=== PATIENT | female | born 1945 | race Caucasian/White ===

== ENCOUNTER 2023-09-13 15:50 | Inpatient (IN) | payer MEDICARE, OTHER, SELFPAY ==
[2023-09-13] VITALS (15 sets, daily range): BP systolic 73–129; BP diastolic 44–60; PULSE 75–97; RESP 16–20; TEMP 37.1–39.1; O2SAT 95–98; BMI 26.1
--- NOTE | ~2023-09-13 | CT_ITS ---
EXAMINATION: CT ABDOMEN AND PELVIS WITH CONTRAST CLINICAL INFORMATION: Pancytopenia. Hypotension. Fever. COMPARISON: None available. TECHNIQUE: Multidetector volumetric images were obtained from the superior aspect of the liver through the pubic symphysis following administration 85 mL of Omnipaque 350 intravenous contrast. Sagittal and coronal reformatted images were obtained on the technologist's workstation. Oral contrast: No This CT examination was performed using dose optimization techniques as appropriate, variously including the following: *Automated exposure control *Adjustment of mA and/or kV according to patient size (this includes techniques or standardized protocols for targeted exams where dose is matched to indication/reason for exam; i.e. extremities or head) *Use of iterative reconstruction technique DLP: 496 mGy-cm FINDINGS: LUNG BASES: The visualized lung bases are unremarkable. LIVER, GALLBLADDER, AND BILIARY TREE: The liver is normal in size, shape, and attenuation. No focal hepatic lesion or biliary ductal dilatation is present. 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 SPLEEN: Unremarkable. ADRENAL GLANDS: Unremarkable. KIDNEYS AND URETERS: The kidneys are normal in size, shape, and attenuation. No hydronephrosis, hydroureter, or calculi seen. No perinephric stranding. BLADDER: Unremarkable. GASTROINTESTINAL TRACT: The small and large bowel are unremarkable. The appendix is unremarkable. ABDOMINAL WALL: No significant hernia is appreciated. LYMPH NODES: Normal. VASCULAR: Unremarkable. PELVIC VISCERA: Unremarkable. OSSEOUS STRUCTURES: There is diffuse thoracolumbar disc degenerative change with curvature of the lumbar spine convex to the right. CT/CT abdomen pelvis w IV con IMPRESSION: No acute intra-abdominal process. Fleischner guidelines were followed.
--- NOTE | ~2023-09-13 | XR_ITS ---
EXAMINATION: XR CHEST CLINICAL INFORMATION: Fever. COMPARISON: None available. TECHNIQUE: Frontal view of the chest was obtained. FINDINGS: No significant abnormality is noted involving the heart, lungs, mediastinum, bony thorax or soft tissues. XR/XR chest 1V IMPRESSION: No radiographic evidence of pneumonia.
--- NOTE | 2023-09-13 17:30 | ED.FALL ---
HPI - Fall General Chief Complaint: Fall Stated Complaint: MECHANICAL FALL,WEAKNESS, FEVERISH SINCE TUESDAY Time Seen by Provider: 09/13/23 17:30 Source: patient Mode of arrival: EMS Limitations: no limitations History of Present Illness HPI Narrative: Patient been having fever with chills for last 5 days ranging to 103-104 had COVID flu test done yesterday which was negative no upper respiratory symptoms no urinary symptoms no cough prior to arrival patient was taking shower felt lightheaded shower curtain came on along with the patient landed on buttocks no significant injury no loss of consciousness no head injury no neck pain for last 4- 5 days patient not been eating well. No nausea no vomiting no diarrhea no abdominal pain or chest pain no palpitation patient had tick bite on the right chest a week ago the moment patient had tick bite she removed tick within few minutes which was not engorged had local erythema at the site of the bite Related Data Allergies Allergy/AdvReac Type Severity Reaction Status Date / Time Sulfa (Sulfonamide Allergy hives and Verified 09/13/23 16:23 Antibiotics) rash Review of Systems Review of Systems: Yes all other systems are reviewed and are negative [facility] Social History Social History Smoked in Last 30 Days: No Use of substances other than those prescribed or required for medical reasons: No Advance Directives: No Advance Directives Information Provided: No Physical Exam Vital Signs: Vital Signs: Last Vital Signs Temp 99.1 F 09/14/23 00:11 Pulse 90 09/14/23 00:38 Resp 18 09/14/23 00:38 BP 114/62 09/14/23 00:38 Pulse Ox 97 09/14/23 00:11 O2 Del Method Room Air 09/14/23 00:38 BMI result Body Mass Index 26.1 Appearance: Alert. Oriented X3. No acute distress. Eyes: PERRLA, No Nystagmus ENT: Pharynx normal. Oral Mucosa dry Neck: Normal inspection. Neck supple. CVS: Normal heart rate and rhythm. Pulses normal. Respiratory: No respiratory distress. Equal air entry bilateral, no wheezing/rales/rhonchi Abdomen: Soft and nontender. Bowel sounds are present, no mass palpable, no CVA tenderness Skin: Skin warm and dry. Normal skin color. Normal skin turgor. Extremities: No lower extremity edema. No calf tenderness Neuro: Oriented X 3. No motor deficit. No sensory deficit.No cerebellar signs , cranial nerves II-XII intact Medications Administered Generic Name Dose Route Start Last Admin Trade Name Ella PRN Reason Stop Dose Admin Lactated Ringer's 1,000 mls @ 250 mls/hr 09/13/23 21:13 09/13/23 21:57 Lr IVCONT 09/14/23 01:12 250 mls/hr .Q4H ONE Administration Discontinued Medications Generic Name Dose Route Start Last Admin Trade Name Ella PRN Reason Stop Dose Admin Acetaminophen 650 mg 09/13/23 17:32 09/13/23 18:06 Acetaminophen 325 Mg Tablet PO 09/13/23 17:33 650 mg ONCE ONE Administration Sodium Chloride 1,000 mls @ 999 mls/hr 09/13/23 17:31 09/13/23 19:03 Ns IV 09/13/23 18:31 Infused .Q1H1M ONE Infusion Sodium Chloride 1,000 mls @ 999 mls/hr 09/13/23 19:29 09/13/23 21:06 Ns IV 09/13/23 20:29 Infused .Q1H1M ONE Infusion Cefepime HCl 1 gm/ Sodium 50 mls @ 100 mls/hr 09/13/23 19:35 09/13/23 20:17 Chloride IV 09/13/23 20:04 Infused ONCE ONE Infusion Doxycycline Hyclate 100 mg/ 250 mls @ 166.67 mls/hr 09/13/23 19:37 09/13/23 22:20 Sodium Chloride IV 09/13/23 21:06 Infused ONCE ONE Infusion Iohexol 85 ml 09/13/23 23:52 09/13/23 23:52 Iohexol 350 Mg/Ml 100 Ml Infus..Btl IV 09/13/23 23:53 85 ml ONCE ONE Administration Midodrine 10 mg 09/13/23 21:12 09/13/23 21:57 Midodrine Hcl 10 Mg Tablet PO 09/13/23 21:13 10 mg ONCE ONE Administration Medical Decision Making Medical Decision Making [facility] Narrative: Patient with fever pancytopenia source of infection is not clear likely tick-borne diseases/atypical viral conditions//anasplmosis/ ehrlichiosis Patient received IV fluid more than 30 cc/kg of broad-spectrum antibiotics were given including doxycycline to cover atypical infections blood pressure improved to 114/62 with pulse rate of 90 patient looks much better taking p.o. fluids will admit to medical floor case discussed with interface control officer and hospitalist aware of the situation Differential Diagnosis Differential Diagnoses: The differential diagnosis associated with the presentation includes UTI/bacteremia /viral infection/ehrlichiosis/septicemia/ Admission/Observation Consideration of admission/observation: Escalation of care including admission/observation considered Consult Healthcare Provider Management of the patient was discussed with: Hospitalist Lab Data [facility] Lab Attestation statement: I reviewed the patient's lab results. 09/13/23 18:02 09/13/23 18:02 Labs: Lab Results 09/13/23 09/13/23 09/13/23 Range/Units 18:02 19:07 20:52 WBC 1.4 L (4.8-10.8) X10*3/uL RBC 3.72 L (4.20-5.50) X10*6/uL Hgb 9.9 L (12.0-16.0) g/dl Hct 29.4 L (37.0-47.0) % MCV 79.0 L (80.0-98.0) fL MCH 26.6 L (27.0-33.0) pg MCHC 33.7 (31.0-35.0) g/dl RDW 13.0 (11.0-16.0) % Plt Count 29 L (160-400) X10*3/uL MPV Not Reportable Immature Gran % (Auto) 0.0 (0.0-0.4) % Neut % (Auto) 81.7 H (45-73) % Lymph % (Auto) 11.3 L (20-40) % [place] % (Auto) 7.0 (2-11) % Eos % (Auto) 0.0 (0-4) % Baso % (Auto) 0.0 (0-2) % Lymph # (Auto) 0.2 L (1.2-4.9) X10*3/uL [place] # (Auto) 0.1 (0.1-1.2) X10*3/uL Eos # (Auto) 0.0 (0.0-0.4) X10*3/uL Baso # (Auto) 0.0 (0.0-0.2) X10*3/uL Abs Immat Gran (auto) 0.00 (0.00-0.03) X10*3/uL Absolute Neuts (auto) 1.2 L (2.0-8.3) x10*3/uL Absolute Nucleated RBC 0.000 (0.0-0.012) X10*3/uL Nucleated RBC % (auto) 0.0 (0.0-0.2) /100WBC Smear Tech's Comments VERIFIED Sodium 131 L (135-145) mmol/L Potassium 3.5 (3.3-5.1) mmol/L Chloride 97 (96-108) mmol/L Carbon Dioxide 24 (22-29) mmol/L Anion Gap 14 (12-20) BUN 21 H (9-16) mg/dL Creatinine 0.83 (0.5-1.4) mg/dL Estim Creat Clear Calc 55.8 Estimated GFR > 60 Random Glucose 114 (60-115) mg/dL Lactic Acid 1.1 (0.5-2.0) mmol/L Calcium 8.5 (8.4-10.2) mg/dL Magnesium 2.0 (1.6-2.6) mg/dL Total Bilirubin 0.4 (0.0-1.0) mg/dL AST 98 H (5-31) U/L ALT 68 H (0-31) U/L Alkaline Phosphatase 178 H (39-117) U/L C-Reactive Protein 25.74 H (< or = 0.50) mg/dL Total Protein 5.9 L (6.5-8.0) g/dL Albumin 3.3 L (3.5-5.0) g/dL Urine Color Yellow Urine Appearance Cloudy Urine pH 6.0 (5.0-9.0) Ur Specific [place] 1.015 (1.005-1.025) Urine Protein 100 (2+) H (Neg-Trace) mg/dL Urine Glucose (UA) Negative (Negative) mg/dL Urine Ketones Trace (Negative) mg/dL Urine Blood Moderate (2+) H (Negative) Urine Nitrite Negative (Negative) Ur Leukocyte Esterase Negative (Negative) Urine RBC 0-2 (0-2) /HPF Urine WBC 0-5 (0-5) /HPF Ur Squamous Epith Cells 6-10 (0-2) /HPF Urine Bacteria None Seen (None Seen) Hyaline Casts 0-2 (0-2) /LPF Granular Casts Present Influenza Type A (PCR) NEGATIVE (Negative) Influenza Type B (PCR) NEGATIVE (Negative) RSV RNA Qual (PCR) NEGATIVE (Negative) SARS-CoV-2 RNA (RT-PCR) NEGATIVE (Negative) Independent Interpretation I performed an independent interpretation of an: EKG, Plain X-Ray and CT Scan Interpretation: No sinus rhythm heart rate 90 beats per minute nonspecific ST T wave change , normal axis no acute ischemic Radiology Impression Discussion of test interpretation with radiology: I have reviewed the radiologist's reading. Critical Care Time Critical Care Time Critical Care Time: Yes Total Critical Care Time: 55 Attestation: The patient was critically ill with a high probability of imminent or life threatening deterioration. I spent greater than 60 minutes of discontinuous time evaluating the patient,delivering critical care at the bedside, discussing and evaluating pertinent data with consultants. Critical care time does not include time spent performing separately billable procedures or teaching. Total time spent performing critical care was 55 minutes. Discharge Plan Discharge Clinical Impression: Severe sepsis Patient Disposition: Admitted As Inpatient
--- NOTE | 2023-09-13 17:32 | ECG_ITS ---
Test Reason : WEAKNESS Blood Pressure : / mmHG Vent. Rate : 090 BPM Atrial Rate : 090 BPM P-R Int : 144 ms QRS Dur : 094 ms QT Int : 368 ms P-R-T Axes : 056 058 049 degrees QTc Int : 450 ms Normal sinus rhythm RSR' or QR pattern in V1 suggests right ventricular conduction delay Low voltage QRS Nonspecific T wave abnormality Abnormal ECG No previous ECGs available Referred By: Kaiden Foreman Electronically Signed By:MARIYA MARTÍNEZ MD
[2023-09-13] MEDS: 0.9 % Sodium Chloride 1,000 ML 999 ML IV ×2 (18:02→19:29)
[2023-09-13] MEDS: Acetaminophen 325 MG TABLET 650 MG PO (18:06)
[2023-09-13 18:20] LABS: Lactic Acid 1.1 mmol/L (0.5-2.0)
[2023-09-13 18:25] LABS: Alanine Aminotransferase 68 U/L (0-31); Albumin Level 3.3 g/dL (3.5-5.0); Alkaline Phosphatase 178 U/L (39-117); Anion Gap 14 (12-20); Aspartate Amino Transferase 98 U/L (5-31); Bilirubin Total 0.4 mg/dL (0.0-1.0); Blood Urea Nitrogen 21 mg/dL (9-16); Calcium 8.5 mg/dL (8.4-10.2); Carbon Dioxide 24 mmol/L (22-29); Chloride 97 mmol/L (96-108); Creatinine Clr Calc Pharmacy 55.8; Estimated Glomerular Filt Rate > 60; Glucose Random 114 mg/dL (60-115); Potassium 3.5 mmol/L (3.3-5.1); Sodium 131 mmol/L (135-145); Total Protein 5.9 g/dL (6.5-8.0)
--- NOTE | 2023-09-13 18:26 | PC.NURSE ---
late entry: pt a&o x4, pleasant, calm, and cooperative. pt sts she has had a fever since Tuesday with weakness and a headache. has been taking tylenol at home. pt arrived with 20G IV to LAC via EMS. patent. pt medicated per jan. pt sister at bedside. awaiting UA. rr even/unlabored. call bird within pt reach. plan of care ongoing.
[2023-09-13 18:38] LABS: SCAN SMEAR FLAG 1
[2023-09-13 18:39] LABS: Hematocrit 29.4 % (37.0-47.0); Hemoglobin 9.9 g/dl (12.0-16.0); Lymphocytes Absolute Auto 0.2 X10*3/uL (1.2-4.9); Lymphocytes Percent Auto 11.3 % (20-40); MANUAL DIFF FLAG SCAN; Mean Corpuscular HGB Conc 33.7 g/dl (31.0-35.0); Mean Corpuscular Hemoglobin 26.6 pg (27.0-33.0); Monocytes Absolute Auto 0.1 X10*3/uL (0.1-1.2); Neutrophils Absolute Auto 1.2 x10*3/uL (2.0-8.3); Neutrophils Percent Auto 81.7 % (45-73); Red Blood Count 3.72 X10*6/uL (4.20-5.50)
[2023-09-13 19:18] LABS: Platelet Count 29 X10*3/uL (160-400); White Blood Count 1.4 X10*3/uL (4.8-10.8)
[2023-09-13 19:19] LABS: PLT ABN DIST 1
[2023-09-13 19:26] LABS: SLIDE REVIEW VERIFIED
--- NOTE | 2023-09-13 19:33 | MHC.EDTECH ---
This tech assumed care of patient at 1900,Hourly rounds and vitals completed, Patients BP is low 82/44,repeated 73/44 and RN Ubaldo made aware. Patient repositioned in bed to comfort,unable to give urine sample at this time. Call bird within reach and family at bedside
[2023-09-13] MEDS: cefEPime HCl 1 GM in 0.9 % Sodium Chloride 50 ML IV (19:47)
[2023-09-13 19:58] LABS: Influenza A PCR NEGATIVE (Negative); Influenza B PCR NEGATIVE (Negative); Resp Syncy Virus RNA Qual PCR NEGATIVE (Negative); SARS COV2 PCR INHOUSE NEGATIVE (Negative)
[2023-09-13] MEDS: Doxycycline Hyclate 100 MG in 0.9 % Sodium Chloride 250 ML 166.67 MG IV (20:47)
[2023-09-13 20:59] LABS: Appearance Urine Cloudy; Color Urine Yellow; Glucose Urine UA Negative (Negative); Leukocyte Esterase Urine Negative (Negative); Nitrite Urine Negative (Negative); Specific Gravity - Urine 1.015 (1.005-1.025); UMIC TRIGGER UACC YES; Urine Blood Moderate (2+) (Negative); Urine Ketones Trace mg/dL (Negative); Urine Protein 100 (2+) mg/dL (Neg-Trace)
[2023-09-13 21:17] LABS: Bacteria Urine None Seen (None Seen); Granular Casts Urine Present; Hyaline Casts Urine 0-2 /LPF (0-2); RBC Urine 0-2 /HPF (0-2); WBC Urine 0-5 /HPF (0-5)
[2023-09-13] MEDS: Midodrine HCl 10 MG TABLET PO (21:57)
[2023-09-13] MEDS: Lactated Ringers 1,000 ML 250 ML IVCONT (21:57)
--- NOTE | 2023-09-13 22:10 | MHC.EDTECH ---
Hourly rounds and vitals completed,Patients BP is low 86/51 RN Ubaldo aware
[2023-09-13] MEDS: iohexoL 350 MG/ML 100 ML INFUS..BTL 85 ML IV (23:52)
--- NOTE | 2023-09-13 23:53 | MHC.EDTECH ---
Belonging list completed and copy in chart
[2023-09-14] VITALS (33 sets, daily range): BP systolic 80–129; BP diastolic 41–76; PULSE 53–106; RESP 15–27; TEMP 36.4–37.8; O2SAT 92–98; BMI 26.3
--- NOTE | 2023-09-14 | ECG_ITS ---
Test Reason : per Blood Pressure : / mmHG Vent. Rate : 057 BPM Atrial Rate : 057 BPM P-R Int : 136 ms QRS Dur : 086 ms QT Int : 426 ms P-R-T Axes : 030 053 035 degrees QTc Int : 414 ms Sinus bradycardia RSR' or QR pattern in V1 suggests right ventricular conduction delay Low voltage QRS Borderline ECG When compared with ECG of 13-SEP-2023 18:46, Vent. rate has decreased BY 33 BPM T wave inversion less evident in Anterior leads Referred By: Sabina Ortez Electronically Signed By:MARIYA MARTÍNEZ MD
--- NOTE | 2023-09-14 00:12 | MHC.EDTECH ---
Patient's BP is 80/62 RN Justice and ,made aware
[2023-09-14 00:38] LABS: C Reactive Protein 25.74 mg/dL (< or = 0.50)
--- NOTE | 2023-09-14 00:48 | MHC.EDTECH ---
Ortho Static BP taken per request of provider.
--- NOTE | 2023-09-14 00:49 | MHC.EDTECH ---
Patient is resting comfortably at this time,patients BP is at 112/59
--- NOTE | 2023-09-14 01:22 | MHC.EDTECH ---
Patients BP is 97/50,RN Justice made aware
[2023-09-14 01:23] LABS: Erythrocyte Sedimentation Rate 38 MM/HR (0-20)
--- NOTE | 2023-09-14 01:35 | MHC.EDTECH ---
manual BP taken 98/60,RN Justice aware
--- NOTE | 2023-09-14 02:28 | P.HPCC_ITS ---
History of Present Illness Date of Service: 09/14/23 Attending physician on admission: Sabina Ortez Chief Complaint: Febrile illness Ms. Holt Is a 77-year-old female with a history of anxiety and cholecystectomy approximately 2 years ago who presented to the ER after feeling lightheaded while in the shower and falling on her buttocks.? No LOC, no head injury or neck pain. She does report having fevers with chills for the last 5 days with temperatures ranging from 103-104?F and a poor appetite.? About a week ago she did have a tick bite on the right chest.? She removed the tick within a few minutes.? It was not engorged but there was erythema at the site of the bite. On arrival to the emergency room, the patient's blood pressure was 98/56, heart rate 97, temp 100.7. Laboratory data significant for WBC 1.4, Hgb 9.9, Hct 29.4, PLT 29,? ESR 38, sodium 131, BUN 21, AST 98, ALT 68,? alk-phos 178, CRP 25.74, total protein 5.9, albumin 3.3.? Urinalysis showed 2+ protein, 2+ blood. ? Respiratory panel negative. Imaging: CXR: No significant abnormality is noted involving the heart, lungs, mediastinum, bony thorax or soft tissues. CT/CT abdomen pelvis w IV con: No acute intra-abdominal process. ED course: ? The patient became hypotensive? while in the ED.? She received IV fluid more than 30 cc/kg and broad-spectrum antibiotics were given including doxycycline to cover atypical infections.? Her blood pressure initially responded to the fluids but she again became hypotensive. Review of Systems 2 Constitutional: Constitutional: Reports chills, Reports fatigue, Reports fever(s) and Reports poor appetite Gastrointestinal: Gastrointestinal: Reports diarrhea (pt reports a few episodes over the last couple weeks) Psychiatric: Psychiatric: Reports anxiety (related to high stress job) Endocrine: Endocrine: Reports fatigue Hematologic/Lymphatic: Hematologic/Lymphatic: Reports as per HPI [facility] Past Medical History Functional capacity: independent ambulation Social History Social History Patient Tobacco Use Status: Never used Tobacco Smoked in Last 30 Days: No Use of substances other than those prescribed or required for medical reasons: No Advance Directives: No Advance Directives Information Provided: No Nutrition Risks: No Nutritional Risk Travel History Ebola Risk: Travel/Contact With Anyone From Affected Area/s: No Meds Allergies Allergy/AdvReac Type Severity Reaction Status Date / Time Sulfa (Sulfonamide Allergy hives and Verified 09/13/23 16:23 Antibiotics) rash Active Medications: Current Medications Heparin Sodium (Porcine) (Heparin Sodium,Porcine 5,000 Unit/Ml Vial) 5,000 unit SUBCUT Q12H REGINA Physical Exam 2 Vital Signs: Vital Signs: Last Vital Signs Temp 99.1 F 09/14/23 00:11 Pulse 92 09/14/23 01:33 Resp 16 09/14/23 01:33 BP 98/60 09/14/23 01:33 Pulse Ox 98 09/14/23 01:33 O2 Del Method Room Air 09/14/23 01:33 BMI result Body Mass Index 26.3 Const: General: cooperative, healthy appearing and no acute distress N utritional Appearance: average body habitus Orientation/consciousness: p atient oriented x3 Limitations: no limitations HEENT: Head: Yes normocephalic and Yes atraumatic General nose exam: Normal external nose present (Nares patent, septum midline, sinuses nontender bilaterally.) Mouth: abnormal oral mucosae (Oral mucosa dry) Neck: Neck: Yes supple (no thyromegaly, trachea midline.) Carotids: normal carotid upstroke Resp: Auscultation: clear to auscultation bilaterally (normal work of breathing, no accessory muscle use) Cardio: Jugular venous distension: no JVD Rate: regular rate Rhythm: r egular rhythm Heart sounds: no gallops, no murmurs and no rubs Peripheral pulses: Peripheral pulses 2+ throughout GI: Palpation (GI): Soft to palpation (nondistended.) and nontender Skin: General skin exam: no rashes or lesions noted and turgor normal Neuro: General: patient oriented x3 Extrem: General: Yes full ROM, Yes capillary refill normal and Yes no clubbing, cyanosis or edema Psych: Appearance: grossly normal Mental Status: mental status grossly normal Speech and movement: Normal speech and movement present Affect: n ormal affect Attitude: cooperative Thought process: Normal thought process present Thought content: Normal thought content present Insight: Good insight present (Psych) Judgement: Good judgement present (Psych) Results Labs 09/13/23 18:02 09/13/23 18:02 Labs: Laboratory Results - last 24 hr 09/13/23 09/13/23 09/13/23 18:02 19:07 20:52 MCV 79.0 L MCH 26.6 L MCHC 33.7 RDW 13.0 Plt Count 29 L MPV Not Reportable Immature Gran % (Auto) 0.0 Neut % (Auto) 81.7 H Lymph % (Auto) 11.3 L [place] % (Auto) 7.0 Eos % (Auto) 0.0 Baso % (Auto) 0.0 Lymph # (Auto) 0.2 L [place] # (Auto) 0.1 Eos # (Auto) 0.0 Baso # (Auto) 0.0 Abs Immat Gran (auto) 0.00 Absolute Neuts (auto) 1.2 L Absolute Nucleated RBC 0.000 Nucleated RBC % (auto) 0.0 Smear Tech's Comments VERIFIED ESR Anion Gap 14 Estim Creat Clear Calc 55.8 Estimated GFR > 60 Random Glucose 114 Lactic Acid 1.1 Calcium 8.5 Magnesium 2.0 Total Bilirubin 0.4 AST 98 H ALT 68 H Alkaline Phosphatase 178 H C-Reactive Protein 25.74 H Total Protein 5.9 L Albumin 3.3 L Urine Color Yellow Urine Appearance Cloudy Urine pH 6.0 Ur Specific [place] 1.015 Urine Protein 100 (2+) H Urine Glucose (UA) Negative Urine Ketones Trace Urine Blood Moderate (2+) H Urine Nitrite Negative Ur Leukocyte Esterase Negative Urine RBC 0-2 Urine WBC 0-5 Ur Squamous Epith Cells 6-10 Urine Bacteria None Seen Hyaline Casts 0-2 Granular Casts Present Influenza Type A (PCR) NEGATIVE Influenza Type B (PCR) NEGATIVE RSV RNA Qual (PCR) NEGATIVE SARS-CoV-2 RNA (RT-PCR) NEGATIVE 09/14/23 00:37 MCV MCH MCHC RDW Plt Count MPV Immature Gran % (Auto) Neut % (Auto) Lymph % (Auto) [place] % (Auto) Eos % (Auto) Baso % (Auto) Lymph # (Auto) [place] # (Auto) Eos # (Auto) Baso # (Auto) Abs Immat Gran (auto) Absolute Neuts (auto) Absolute Nucleated RBC Nucleated RBC % (auto) Smear Tech's Comments ESR 38 H Anion Gap Estim Creat Clear Calc Estimated GFR Random Glucose Lactic Acid Calcium Magnesium Total Bilirubin AST ALT Alkaline Phosphatase C-Reactive Protein Total Protein Albumin Urine Color Urine Appearance Urine pH Ur Specific [place] Urine Protein Urine Glucose (UA) Urine Ketones Urine Blood Urine Nitrite Ur Leukocyte Esterase Urine RBC Urine WBC Ur Squamous Epith Cells Urine Bacteria Hyaline Casts Granular Casts Influenza Type A (PCR) Influenza Type B (PCR) RSV RNA Qual (PCR) SARS-CoV-2 RNA (RT-PCR) Imaging Radiologist's Impressions: Impressions Chest X-Ray 09/13/23 20:02 IMPRESSION: No radiographic evidence of pneumonia. Abdomen/Pelvis CT 09/13/23 23:50 IMPRESSION: No acute intra-abdominal process. Fleischner guidelines were followed. Assessment and Plan (1) Severe sepsis: Status: Acute (2) Pancytopenia with fever: Status: Acute (3) Transaminitis: Status: Acute Plan 77-year-old female with a history of anxiety admitted for severe sepsis and pancytopenia. Plan: Neuro: No acute issues. Cardiac: ? Severe sepsis. Pt received more than 30 cc/kg crystalloids. Pressure remains low. Will add pressors as needed. Pulmonary: ? No acute issues. Renal:? no acute issues Endo:? No acute issues.? GI:? Transaminitis. LDH, Lipase ordered. Trend LFT?s.? ID:? Fever, pancytopenia. Source of infection is not clear, likely tick-borne diseases/atypical viral conditions//anaplasmosis/ ehrlichiosis. Serologies pending. Doxycycline, cefepime given in the ED. Will add vanco and atovaquone. Heme/Onc: Pancytopenia related to above.? Blood smear review pending. Psych: ? No acute issues. Miscellaneous:? No acute issues. Prophylaxis:? Heparin, Pneumatic hoses. Diet:? Regular Case discussed with Dr. Ortez. Total time managing care of this patient today: 45 minutes.
[2023-09-14] MEDS: vancomycin HCL 1,000 MG, vancomycin HCL 750 MG in 0.9 % Sodium Chloride 500 ML 267.5 MG IV (03:40)
[2023-09-14 06:26] LABS: Anion Gap 11 (12-20)
[2023-09-14 06:33] LABS: Alanine Aminotransferase 64 U/L (0-31); Albumin Level 2.8 g/dL (3.5-5.0); Alkaline Phosphatase 161 U/L (39-117); Aspartate Amino Transferase 93 U/L (5-31); Bilirubin Total 0.3 mg/dL (0.0-1.0); Blood Urea Nitrogen 14 mg/dL (9-16); Calcium 7.9 mg/dL (8.4-10.2); Carbon Dioxide 23 mmol/L (22-29); Chloride 105 mmol/L (96-108); Creatinine Clr Calc Pharmacy 63.7; Estimated Glomerular Filt Rate > 60; Glucose Random 108 mg/dL (60-115); Lipase 9 U/L (8-78); Magnesium 1.9 mg/dL (1.6-2.6); Phosphorus 2.3 mg/dL (2.7-4.5); Potassium 3.2 mmol/L (3.3-5.1); Sodium 136 mmol/L (135-145); Total Protein 4.9 g/dL (6.5-8.0)
[2023-09-14 06:49] LABS: Lactate Dehydrogenase 335 U/L (122-220)
--- NOTE | 2023-09-14 06:57 | PHA.PROG ---
Admission Date/Time: September 14, 2023 01:34 Indication: Other; possible tick borne illness Weight in k.5 kg Adjusted body weight in Kg: [place] body weight in Kg: Obesity Dosing Indication % IBW: Serum Creatinine - Last 168 Hours 09/13/23 09/14/23 18:02 05:34 Creatinine 0.83 0.73 Estimated CrCl and GFR - Last 168 Hours 09/13/23 09/14/23 18:02 05:34 Estim Creat Clear Calc 55.8 63.7 Estimated GFR > 60 > 60 Vancomycin Loading Dose: 1750mg x 1 Current Vancomycin Dosing Regimen: 750mg Q12H Vancomycin Monitoring using AUC goal of 400 - 600 range with trough as surrogate marker: 492 mg/L Date and Time for next Vancomycin Level to be drawn: 09/15/23 @1400 Pharmacist Comments on Vancomycin Plan: Predicted trough of 16.1; will continue to monitor renal function and adjust accordingly Vancomycin dosing will take advantage of [employer] as a clinical decision support tool that uses Bayesian modeling to calculate individual patient's pharmacokinetic parameters and forecast the patient's drug concentration time course with the target goal AUC 24 range of 400 - 600 mg/L/hr.
--- NOTE | 2023-09-14 07:00 | CA_ITS ---
Transthoracic Echocardiogram Patient (Last, First, Middle): Shamika Holt, Gender: Female Date of : 1945 Age: 77 Procedure Date: 09/14/2023 Procedure Type: Transthoracic Echocardiogram Location: ICU Height: 162.56 cm Weight: 69.4 kg BSA: 1.75 m2 Heart Rate: bpm BP: 105 / 60 mmHg Piece Worker: TO Referring MD: Sabina Ortez MD Boiler Control Room Operator: Jose Francisco Krishna MD Symptoms: Hypotension, Please Assess Cardiac Function Study Quality: Fair/Contrast ECG Rhythm: Sinus Conclusions: - 1. Small circumferential pericardial effusion without respiratory variation and no clear evidence of tamponade 2. Normal LV ejection fraction 55-60% next 3. Normal cardiac valvular Doppler Findings Procedure Information Contrast agent, definity, is being given per protocol without apparent complications. Left Ventricle Normal left ventricular size, thickness, and systolic function. The visually estimated ejection fraction is between 55-60%. Spectral Doppler is indicative of an impaired relaxation filling pattern. Right Ventricle Normal right ventricular cavity size and systolic function. Atria The left atrium is likely dilated. Interatrial shunt cannot be excluded. The right atrium is normal in size. Aortic Valve The aortic valve structure and function is likely normal. There is no aortic valve stenosis. There is no aortic valve regurgitation. Mitral Valve Normal mitral valve structure and function. There is trace mitral valve regurgitation. There is no mitral valve stenosis. Pulmonic Valve The pulmonic valve is likely normal. There is trace pulmonic valve regurgitation. Great Vessels The pulmonary artery was not well visualized. There is no dilatation of the ascending aorta measuring 3.00 cm. Venous The inferior vena cava is moderately dilated and collapses less than 50% with inspiration. Pericardium/Pleural There is a small circumferential pericardial effusion. There are no definitive echocardiographic findings of tamponade physiology. No discernable variation of the mitral valve and tricuspid valve Doppler velocities with respiration. Prior Study Comparison No prior study available for comparison. Measurements 2D Linear Measurements IVSd: 0.82 0.6-0.9/0.6-1.0 cm LVIDd: 5.04 3.9-5.3/4.2-5.9 cm LVIDd Index: 2.88 2.4-3.2/2.2-3.1 cm/m2 LVIDs: 3.48 2.0-3.6 cm LVPWd: 0.79 0.7-1.1 cm LA Diam: 4.00 2.7-3.8/3.0-4.0 cm LAIDs Index: 2.29 1.5-2.3 cm/m2 LV Mass: 172.70 67-162/88-224 g LV Mass Index: 98.68 43-95/49-115 g/m2 LVOT Diam: 2.10 3.0+(-)1.3 cm 2D Systolic Function EF 4C: 56.80 >55% Mitral Valve MV Pk E: 0.86 MV PK A: 0.47 MV Decel Time: 163.00 E/A: 1.80 E'Lateral: 7.83 E'Medial: 7.83 E/E' Med: 11.00 E/E' Lat: 11.00 PHT: 48.00 MVA PHT: 4.58 Decel Amador: 5.29 Aortic Valve AoV Pk Eduardo: 1.38 AoV Mn Eduardo: 0.95 AoV VTI: 0.33 AoV Pk Grad: 8.00 Aov Mn Grad: 4.00 MEGHNA Cont.VTI: 2.29 LVOT LVOT Pk Eduardo: 0.91 LVOT Mn Eduardo: 0.57 LVOT VTI: 0.22 LVOT Pk Grad: 3.00 LVOT Mn Grad: 2.00 LVOT Diam: 2.10 LVOT Area: 3.46 Diastolic Function MV Pk E: 0.86 MV Pk A: 0.47 E/A: 1.80 E'Medial: 7.83 E/E' Med: 11.00 E' Laterial: 7.83 E/E' Lat: 11.00 Right Ventricle TAPSE (mm): 29.10 TVS' Eduardo: 9.57 Tricuspid Valve TR Pk Eduardo: 2.51 TR Pk Grad: 25.00 Great Vessels Aorta Sinus of Valsalva: 2.76 2.0-3.[address] [place]: 2.16 1.7-3.4 cm Ao Asc: 3.00 2.1-3.4 cm Updated in Other Vendor System with Status of Final Jose Francisco Krishna MD electronically signed on 09/14/2023 4:25:04 PM with status of Final
[2023-09-14 07:30] LABS: Ferritin 9119 ng/mL (10-250)
[2023-09-14 07:40] LABS: Basophils Percent Auto 0.8 % (0-2); Hematocrit 26.4 % (37.0-47.0); Hemoglobin 8.8 g/dl (12.0-16.0); Lymphocytes Absolute Auto 0.5 X10*3/uL (1.2-4.9); Lymphocytes Percent Auto 34.4 % (20-40); MANUAL DIFF FLAG SCAN; Mean Corpuscular HGB Conc 33.3 g/dl (31.0-35.0); Mean Corpuscular Hemoglobin 26.8 pg (27.0-33.0); Mean Corpuscular Volume 80.5 fL (80.0-98.0); Mean Platelet Volume 13.6 fL (9.4-12.3); Monocytes Absolute Auto 0.2 X10*3/uL (0.1-1.2); Monocytes Percent Auto 18.3 % (2-11); Neutrophils Absolute Auto 0.6 x10*3/uL (2.0-8.3); Neutrophils Percent Auto 46.5 % (45-73); Red Blood Count 3.28 X10*6/uL (4.20-5.50); Red Cell Distribution Width 13.2 % (11.0-16.0); SCAN SMEAR FLAG 1
[2023-09-14 07:41] LABS: White Blood Count 1.3 X10*3/uL (4.8-10.8)
[2023-09-14 07:42] LABS: Platelet Count 27 X10*3/uL (160-400)
[2023-09-14] MEDS: Potassium Phosphate/NS 15 MMOL/250 ML PLAST..BAG 62.5 MMOL IV ×2 (07:54→12:16)
[2023-09-14] MEDS: Albumin Human 25 % 100 ML IV ×2 (07:54→09:02)
[2023-09-14] MEDS: cefEPime HCl 2 GM in 0.9 % Sodium Chloride 50 ML IV ×3 (07:54→23:40)
[2023-09-14] MEDS: Lactated Ringers 500 ML 999 ML IV (08:06)
[2023-09-14 08:13] LABS: SLIDE REVIEW VERIFIED
[2023-09-14 08:31] LABS: Lactic Acid 0.7 mmol/L (0.5-2.0)
[2023-09-14] MEDS: Doxycycline Hyclate 100 MG in 0.9 % Sodium Chloride 250 ML 166.67 MG IV ×2 (08:39→19:32)
[2023-09-14] MEDS: Acetaminophen 325 MG TABLET 650 MG PO ×2 (08:48→19:38)
[2023-09-14] MEDS: Calcium Gluconate/NaCl,Iso-Osm 1 GM/50 ML PLAST..BAG IV (09:45)
[2023-09-14] MEDS: Atovaquone 750 MG/5 ML ORAL.SUSP PO ×2 (09:53→21:43)
--- NOTE | 2023-09-14 10:19 | MHC.CM.PN ---
This automotive service writer met with patient in the ICU. Patient is alert and oriented, able to make her needs known. She is currently residing temporarily @ [facility] while she finishes working and will return to [place] in October to her primary residence. No servies in the home prior to admission. Reports having a HCP in [place]. Also has PCP in [place] although she forgets their name. IMM delivered. DCP: d/c home no services. CM to continue pt's hospitalization for any changes in DCP.
--- NOTE | 2023-09-14 10:20 | PHA.MEDREC ---
Pharmacy Consult ? Medication Reconciliation Pharmacy has completed the medication reconciliation.
[2023-09-14] MEDS: Norepinephrine Bitartrate/D5W 8 MG/250 ML PLAST..BAG 6.52 MG IV (11:02)
--- NOTE | 2023-09-14 13:34 | PM.CCPN ---
Subjective Subjective Interval History: This is a 77-year-old female with a past medical history of anxiety and status post cholecystectomy two years ago who presented with a controlled mechanical fall with lightheadedness. about a week ago she reported having a tick bite on her right chest which was removed by the patient. The patient was admitted to the intensive care unit due to hypotension. The blood pressure has been semi responsive to fluids and the patient was started on empiric antibiotics for suspected tickborne infection. Physical Exam Vital Signs: Vital Signs: Last Vital Signs Temp 97.6 F 09/14/23 08:00 Pulse 96 09/14/23 13:00 Resp 20 09/14/23 13:00 BP 100/58 L 09/14/23 13:00 Pulse Ox 98 09/14/23 13:00 O2 Del Method Room Air 09/14/23 13:00 BMI result Body Mass Index 26.3 Const: General: healthy appearing and no acute distress Orientation/consciousness: patient oriented x3 HEENT: Head: Yes atraumatic Throat: Yes uvula midline Eyes: Sclerae: sclerae normal Pupils: Equal, round and reactive pupils present EOM: EOMs intact bilaterally Neck: Neck: Yes no lymphadenopathy and Yes no JVD Resp: Effort & Inspection: normal respiratory effort Auscultation: clear to auscultation bilaterally Cardio: Rate: regular rate Rhythm: regular rhythm Heart sounds: S1 normal heart sound present and S2 normal heart sound present GI: Inspection: Yes Abdominal panniculus present and Yes scar Palpation (GI): Soft to palpation and Tenderness to palpation present (GI) (to cailin site) : General: Yes no CVA tenderness Back/Spine/Pelvis: Back: no CVA tenderness Skin: General skin exam: no rashes or lesions noted Neuro: General: patient oriented x3, no focal motor deficits and CN's II-XI intact bilaterally Cranial nerves: Yes Equal, round and reactive pupils present Extrem: General: Yes no clubbing, cyanosis or edema Objective Data Labs 09/14/23 07:13 09/14/23 05:34 Labs: Laboratory Results - last 24 hr 09/13/23 09/13/23 09/13/23 18:02 19:07 20:52 WBC 1.4 L RBC 3.72 L Hgb 9.9 L Hct 29.4 L MCV 79.0 L MCH 26.6 L MCHC 33.7 RDW 13.0 Plt Count 29 L MPV Not Reportable Immature Gran % (Auto) 0.0 Neut % (Auto) 81.7 H Lymph % (Auto) 11.3 L [place] % (Auto) 7.0 Eos % (Auto) 0.0 Baso % (Auto) 0.0 Lymph # (Auto) 0.2 L [place] # (Auto) 0.1 Eos # (Auto) 0.0 Baso # (Auto) 0.0 Abs Immat Gran (auto) 0.00 Absolute Neuts (auto) 1.2 L Absolute Nucleated RBC 0.000 Nucleated RBC % (auto) 0.0 Smear Tech's Comments VERIFIED Smear Path Review SEE NOTE ESR Sodium 131 L Potassium 3.5 Chloride 97 Carbon Dioxide 24 Anion Gap 14 BUN 21 H Creatinine 0.83 Estim Creat Clear Calc 55.8 Estimated GFR > 60 Random Glucose 114 Lactic Acid 1.1 Calcium 8.5 Phosphorus Magnesium 2.0 Ferritin Total Bilirubin 0.4 AST 98 H ALT 68 H Alkaline Phosphatase 178 H Lactate Dehydrogenase C-Reactive Protein 25.74 H Total Protein 5.9 L Albumin 3.3 L Lipase Urine Color Yellow Urine Appearance Cloudy Urine pH 6.0 Ur Specific [place] 1.015 Urine Protein 100 (2+) H Urine Glucose (UA) Negative Urine Ketones Trace Urine Blood Moderate (2+) H Urine Nitrite Negative Ur Leukocyte Esterase Negative Urine RBC 0-2 Urine WBC 0-5 Ur Squamous Epith Cells 6-10 Urine Bacteria None Seen Hyaline Casts 0-2 Granular Casts Present Influenza Type A (PCR) NEGATIVE Influenza Type B (PCR) NEGATIVE RSV RNA Qual (PCR) NEGATIVE SARS-CoV-2 RNA (RT-PCR) NEGATIVE Blood Type Antibody Screen 09/14/23 09/14/23 09/14/23 00:37 05:34 07:13 WBC 1.3 L RBC 3.28 L Hgb 8.8 L Hct 26.4 L MCV 80.5 MCH 26.8 L MCHC 33.3 RDW 13.2 Plt Count 27 L MPV 13.6 H Immature Gran % (Auto) 0.0 Neut % (Auto) 46.5 Lymph % (Auto) 34.4 [place] % (Auto) 18.3 H Eos % (Auto) 0.0 Baso % (Auto) 0.8 Lymph # (Auto) 0.5 L [place] # (Auto) 0.2 Eos # (Auto) 0.0 Baso # (Auto) 0.0 Abs Immat Gran (auto) 0.00 Absolute Neuts (auto) 0.6 L Absolute Nucleated RBC 0.000 Nucleated RBC % (auto) 0.0 Smear Tech's Comments VERIFIED Smear Path Review ESR 38 H Sodium 136 Potassium 3.2 L Chloride 105 Carbon Dioxide 23 Anion Gap 11 L BUN 14 Creatinine 0.73 Estim Creat Clear Calc 63.7 Estimated GFR > 60 Random Glucose 108 Lactic Acid Calcium 7.9 L D Phosphorus 2.3 L Magnesium 1.9 Ferritin 9119 H Total Bilirubin 0.3 AST 93 H ALT 64 H Alkaline Phosphatase 161 H Lactate Dehydrogenase 335 H C-Reactive Protein Total Protein 4.9 L Albumin 2.8 L Lipase 9 Urine Color Urine Appearance Urine pH Ur Specific [place] Urine Protein Urine Glucose (UA) Urine Ketones Urine Blood Urine Nitrite Ur Leukocyte Esterase Urine RBC Urine WBC Ur Squamous Epith Cells Urine Bacteria Hyaline Casts Granular Casts Influenza Type A (PCR) Influenza Type B (PCR) RSV RNA Qual (PCR) SARS-CoV-2 RNA (RT-PCR) Blood Type Antibody Screen 09/14/23 08:12 WBC RBC Hgb Hct MCV MCH MCHC RDW Plt Count MPV Immature Gran % (Auto) Neut % (Auto) Lymph % (Auto) [place] % (Auto) Eos % (Auto) Baso % (Auto) Lymph # (Auto) [place] # (Auto) Eos # (Auto) Baso # (Auto) Abs Immat Gran (auto) Absolute Neuts (auto) Absolute Nucleated RBC Nucleated RBC % (auto) Smear Tech's Comments Smear Path Review ESR Sodium Potassium Chloride Carbon Dioxide Anion Gap BUN Creatinine Estim Creat Clear Calc Estimated GFR Random Glucose Lactic Acid 0.7 Calcium Phosphorus Magnesium Ferritin Total Bilirubin AST ALT Alkaline Phosphatase Lactate Dehydrogenase C-Reactive Protein Total Protein Albumin Lipase Urine Color Urine Appearance Urine pH Ur Specific [place] Urine Protein Urine Glucose (UA) Urine Ketones Urine Blood Urine Nitrite Ur Leukocyte Esterase Urine RBC Urine WBC Ur Squamous Epith Cells Urine Bacteria Hyaline Casts Granular Casts Influenza Type A (PCR) Influenza Type B (PCR) RSV RNA Qual (PCR) SARS-CoV-2 RNA (RT-PCR) Blood Type A Positive Antibody Screen NEGATIVE Microbiology Microbiology Results: Microbiology 09/13/23 18:02 Blood - Venous Blood Culture - Preliminary Prelim: GPC Gram Stain only Progress Note: A&P Assessment and plan Plan Neurologic: no acute issues at this time. Cardiovascular: patient found to have low voltage on continuous telemetry and has a rate in the 60s to 70s NSR. The lower voltage prompted for bedside ultrasonography revealing small pericardial effusion. No signs of tamponade including JVD, narrowing pulse pressure or muffled heart sounds. Order placed for formal cardiac echo. Respiratory: no acute issues at this time. Gastrointestinal: no acute issues at this time. Renal/Genitourinary: no acute issues at this time. Hematology: Upon admission, patient was found to have pancytopenia of unknown origin. This was originally found when the patient reported 30 pounds of unintentional weight loss in August 2022. Lab performed by her PCP in [place] at the time revealed the pancytopenia which prompted a hematology consult. The pancytopenia has been monitored by hematology up until May when the patient moved back to [place]. The patient?s sister is working to acquire those tract labs. Platelet transfusion threshold at less than 10,000 which is currently at 27,000. Hemoglobin threshold at 7 and is currently at 8.8. Plan is to ask for input from IR on potential bone marrow biopsy. Infectious disease: patient presented with fever ,hypotension and pancytopenia. Also had a mild transaminitis. Patient was suspected to have sepsis though no elevation of lactate. Patient given crystalloids at 30 ML per KG per hour with mild responsiveness. Patient also given Tylenol for fever. Patient has maintained afebrile state with moderate hypertension and continuous Crystalloid administration. From patient history, suspected to have tick borne illness. The patient was started on doxycycline which is an IDSA guidelines. Additionally the lastex operator decided to add vancomycin for MRSA coverage, cefepime and atovaquanone due to patient absolute neutrophil count of 0.6 and patient susceptibility to fungal/parasitic infections. Still awaiting blood culture results. Endocrine: no acute issues at this time. Integumentary: no acute issues at this time. Quality VTE VTE Risk Level:: Medical - moderate - high VTE Device Contraindication: N/A - Device Ordered VTE Drug Contraindication: N/A - Med Ordered
[2023-09-14 14:44] LABS: Basophils Percent Auto 0.5 % (0-2); Hematocrit 26.4 % (37.0-47.0); Hemoglobin 8.9 g/dl (12.0-16.0); Imm Gran Abs Auto 0.01 X10*3/uL (0.00-0.03); Imm Gran Pct Auto 0.5 % (0.0-0.4); Lymphocytes Absolute Auto 0.9 X10*3/uL (1.2-4.9); Lymphocytes Percent Auto 50.5 % (20-40); MANUAL DIFF FLAG SCAN; Mean Corpuscular HGB Conc 33.7 g/dl (31.0-35.0); Mean Corpuscular Hemoglobin 26.6 pg (27.0-33.0); Mean Corpuscular Volume 78.8 fL (80.0-98.0); Monocytes Absolute Auto 0.2 X10*3/uL (0.1-1.2); Monocytes Percent Auto 10.2 % (2-11); Neutrophils Absolute Auto 0.7 x10*3/uL (2.0-8.3); Neutrophils Percent Auto 38.3 % (45-73); Red Blood Count 3.35 X10*6/uL (4.20-5.50); Red Cell Distribution Width 13.4 % (11.0-16.0); SCAN SMEAR FLAG 1
[2023-09-14 14:45] LABS: Platelet Count 26 X10*3/uL (160-400); White Blood Count 1.9 X10*3/uL (4.8-10.8)
[2023-09-14 15:15] LABS: TSH reflex Free T4 1.91 uIU/mL (0.32-4.0)
[2023-09-14 15:16] LABS: Cortisol Random 10.8 ug/dL
[2023-09-14] MEDS: vancomycin HCL 750 MG in 0.9 % Sodium Chloride 250 ML 265 MG IV (15:18)
[2023-09-14 16:25] LABS: Anion Gap 13 (12-20); Blood Urea Nitrogen 14 mg/dL (9-16); Calcium 8.7 mg/dL (8.4-10.2); Carbon Dioxide 22 mmol/L (22-29); Chloride 108 mmol/L (96-108); Estimated Glomerular Filt Rate > 60; Glucose Random 110 mg/dL (60-115); Magnesium 2.1 mg/dL (1.6-2.6); Phosphorus 3.6 mg/dL (2.7-4.5); Potassium 3.5 mmol/L (3.3-5.1); Sodium 139 mmol/L (135-145)
[2023-09-14] MEDS: Benzonatate 100 MG CAPSULE PO (16:27)
[2023-09-14 20:57] LABS: Basophils Percent Auto 0.3 % (0-2); Hematocrit 26.1 % (37.0-47.0); Hemoglobin 8.8 g/dl (12.0-16.0); Imm Gran Abs Auto 0.01 X10*3/uL (0.00-0.03); Imm Gran Pct Auto 0.3 % (0.0-0.4); Lymphocytes Absolute Auto 1.2 X10*3/uL (1.2-4.9); Lymphocytes Percent Auto 39.4 % (20-40); MANUAL DIFF FLAG SCAN; Mean Corpuscular HGB Conc 33.7 g/dl (31.0-35.0); Mean Corpuscular Hemoglobin 26.7 pg (27.0-33.0); Mean Corpuscular Volume 79.3 fL (80.0-98.0); Monocytes Absolute Auto 0.3 X10*3/uL (0.1-1.2); Monocytes Percent Auto 8.9 % (2-11); Neutrophils Absolute Auto 1.5 x10*3/uL (2.0-8.3); Neutrophils Percent Auto 51.1 % (45-73); Platelet Count 32 X10*3/uL (160-400); Red Blood Count 3.29 X10*6/uL (4.20-5.50); Red Cell Distribution Width 13.4 % (11.0-16.0); SCAN SMEAR FLAG 1
[2023-09-14 21:14] LABS: Anion Gap 11 (12-20); Blood Urea Nitrogen 13 mg/dL (9-16); Calcium 8.3 mg/dL (8.4-10.2); Carbon Dioxide 22 mmol/L (22-29); Chloride 109 mmol/L (96-108); Creatinine Clr Calc Pharmacy 62.8; Estimated Glomerular Filt Rate > 60; Glucose Random 132 mg/dL (60-115); Magnesium 1.9 mg/dL (1.6-2.6); Phosphorus 2.8 mg/dL (2.7-4.5); Potassium 3.2 mmol/L (3.3-5.1); Sodium 139 mmol/L (135-145)
[2023-09-14 21:16] LABS: SLIDE REVIEW VERIFIED
[2023-09-14] MEDS: Potassium Chloride ER 20 MEQ TAB.ER.PRT 40 MEQ PO (23:40)
[2023-09-15] VITALS (15 sets, daily range): BP systolic 96–114; BP diastolic 46–62; PULSE 62–92; RESP 14–25; TEMP 36.3–37.4; O2SAT 91–98
[2023-09-15] MEDS: vancomycin HCL 750 MG in 0.9 % Sodium Chloride 250 ML 150 MG IV (04:34)
[2023-09-15 06:20] LABS: Basophils Percent Auto 0.4 % (0-2); Hematocrit 28.3 % (37.0-47.0); Hemoglobin 9.5 g/dl (12.0-16.0); Imm Gran Abs Auto 0.01 X10*3/uL (0.00-0.03); Imm Gran Pct Auto 0.2 % (0.0-0.4); Lymphocytes Absolute Auto 1.7 X10*3/uL (1.2-4.9); Lymphocytes Percent Auto 37.1 % (20-40); MANUAL DIFF FLAG SCAN; Mean Corpuscular HGB Conc 33.6 g/dl (31.0-35.0); Mean Corpuscular Hemoglobin 26.8 pg (27.0-33.0); Mean Corpuscular Volume 79.9 fL (80.0-98.0); Monocytes Absolute Auto 0.4 X10*3/uL (0.1-1.2); Monocytes Percent Auto 9.1 % (2-11); Neutrophils Absolute Auto 2.4 x10*3/uL (2.0-8.3); Neutrophils Percent Auto 53.2 % (45-73); Red Blood Count 3.54 X10*6/uL (4.20-5.50); Red Cell Distribution Width 13.5 % (11.0-16.0); SCAN SMEAR FLAG 1; White Blood Count 4.5 X10*3/uL (4.8-10.8)
[2023-09-15 06:23] LABS: Platelet Count 44 X10*3/uL (160-400)
[2023-09-15 06:29] LABS: Alanine Aminotransferase 73 U/L (0-31); Albumin Level 3.4 g/dL (3.5-5.0); Alkaline Phosphatase 203 U/L (39-117); Anion Gap 13 (12-20); Aspartate Amino Transferase 83 U/L (5-31); Bilirubin Total 0.3 mg/dL (0.0-1.0); Blood Urea Nitrogen 12 mg/dL (9-16); Calcium 8.7 mg/dL (8.4-10.2); Carbon Dioxide 22 mmol/L (22-29); Chloride 109 mmol/L (96-108); Creatinine Clr Calc Pharmacy 66.4; Estimated Glomerular Filt Rate > 60; Glucose Random 103 mg/dL (60-115); Magnesium 1.9 mg/dL (1.6-2.6); Phosphorus 2.7 mg/dL (2.7-4.5); Potassium 3.9 mmol/L (3.3-5.1); Sodium 140 mmol/L (135-145); Total Protein 5.7 g/dL (6.5-8.0)
[2023-09-15 07:17] LABS: SLIDE REVIEW VERIFIED
[2023-09-15] MEDS: Doxycycline Hyclate 100 MG in 0.9 % Sodium Chloride 250 ML 166.67 MG IV ×2 (09:01→19:30)
[2023-09-15] MEDS: cefEPime HCl 2 GM in 0.9 % Sodium Chloride 50 ML IV ×2 (09:12→15:18)
[2023-09-15] MEDS: Atovaquone 750 MG/5 ML ORAL.SUSP PO (09:14)
[2023-09-15] MEDS: hydrOXYzine HCL 10 MG TABLET PO (13:46)
[2023-09-15] MEDS: Acetaminophen 325 MG TABLET 650 MG PO (13:46)
--- NOTE | 2023-09-15 13:47 | HO.PM.IMPN ---
Subjective Subjective Date of Service: 09/15/23 Interval History: pt was admitted through ICU for hypotension, severe sepsis, fever, chills and concern for tick borne illness. Fevers have resolved, hypotension resolved after pressore, she's highly anxious Physical Exam Vital Signs: Vital Signs: Last Vital Signs Temp 98.7 F 09/15/23 12:00 Pulse 69 09/15/23 12:00 Resp 20 09/15/23 12:00 BP 103/57 L 09/15/23 12:00 Pulse Ox 98 09/15/23 12:00 O2 Del Method Room Air 09/15/23 12:00 BMI result Body Mass Index 26.3 Const: Other: General: AO X 3, no acute distress Resp: CTA bilateral CVS: S1,S2,RRR GI: +BS, NT, no distention Skin: No rash Neuro: motor grossly intact Psych: appropriate affect Objective Data Active Medications Acetaminophen (Acetaminophen 325 Mg Tablet) 650 mg PO Q6H PRN PRN Reason: fever > 102 Last Admin: 09/14/23 19:38 Dose: 650 mg Documented By: RENU Atovaquone (Atovaquone 750 Mg/5 Ml Oral.Susp) 750 mg PO BID [facility] Stop: 09/20/23 21:01 Last Admin: 09/15/23 09:14 Dose: 750 mg Documented By: YONI Bupropion HCl (Bupropion Hcl Xl 300 Mg Tab.Er.24h) 300 mg PO DAILY [facility] Cyanocobalamin (Cyanocobalamin (Vitamin B-12) 1,000 Mcg Tablet) 1,000 mcg PO DAILY [facility] Hydroxyzine HCl (Hydroxyzine Hcl 10 Mg Tablet) 10 mg PO Q6H PRN PRN Reason: anxiety/restlessness Vancomycin HCl 750 mg/ Sodium (Chloride) 265 mls @ 265 mls/hr IV Q12H [facility] Last Infusion: 09/15/23 06:32 Dose: Infused Documented By: RENU Cefepime HCl 2 gm/ Sodium (Chloride) 50 mls @ 100 mls/hr IV Q8H [facility] Last Infusion: 09/15/23 09:44 Dose: Infused Documented By: YONI Doxycycline Hyclate 100 mg/ (Sodium Chloride) 250 mls @ 166.67 mls/hr IV Q12H [facility] Stop: 09/23/23 20:59 Last Infusion: 09/15/23 10:45 Dose: Infused Documented By: YONI Multivitamins/Vitamin C (Multivitamin Tablet) 1 tab PO DAILY [facility] Pharmacy Consult (Consult Rx Vancomycin Dosing) 1 each MISCELLANE DAILY PRN PRN Reason: Consult order Vitamin D (Cholecalciferol (Vitamin D3) 25 Mcg Tablet) 25 mcg PO DAILY [facility] Labs 09/15/23 05:10 09/15/23 05:10 Labs: Laboratory Results - last 24 hr 09/14/23 09/14/23 09/14/23 14:16 15:54 20:18 MCV 78.8 L 79.3 L MCH 26.6 L 26.7 L MCHC 33.7 33.7 RDW 13.4 13.4 Plt Count 26 L 32 L MPV Not Reportable Not Reportable Immature Gran % (Auto) 0.5 H 0.3 Neut % (Auto) 38.3 L 51.1 Lymph % (Auto) 50.5 H 39.4 [place] % (Auto) 10.2 8.9 Eos % (Auto) 0.0 0.0 Baso % (Auto) 0.5 0.3 Lymph # (Auto) 0.9 L 1.2 [place] # (Auto) 0.2 0.3 Eos # (Auto) 0.0 0.0 Baso # (Auto) 0.0 0.0 Abs Immat Gran (auto) 0.01 0.01 Absolute Neuts (auto) 0.7 L 1.5 L Absolute Nucleated RBC 0.000 0.000 Nucleated RBC % (auto) 0.0 0.0 Smear Tech's Comments VERIFIED Anion Gap 13 11 L Estim Creat Clear Calc 56.0 62.8 Estimated GFR > 60 > 60 Random Glucose 110 132 H Calcium 8.7 D 8.3 L Phosphorus 3.6 2.8 Magnesium 2.1 1.9 Total Bilirubin AST ALT Alkaline Phosphatase Total Protein Albumin TSH 1.91 Random Cortisol 10.8 09/15/23 05:10 MCV 79.9 L MCH 26.8 L MCHC 33.6 RDW 13.5 Plt Count 44 L D MPV Not Reportable Immature Gran % (Auto) 0.2 Neut % (Auto) 53.2 Lymph % (Auto) 37.1 [place] % (Auto) 9.1 Eos % (Auto) 0.0 Baso % (Auto) 0.4 Lymph # (Auto) 1.7 [place] # (Auto) 0.4 Eos # (Auto) 0.0 Baso # (Auto) 0.0 Abs Immat Gran (auto) 0.01 Absolute Neuts (auto) 2.4 Absolute Nucleated RBC 0.000 Nucleated RBC % (auto) 0.0 Smear Tech's Comments VERIFIED Anion Gap 13 Estim Creat Clear Calc 66.4 Estimated GFR > 60 Random Glucose 103 Calcium 8.7 Phosphorus 2.7 Magnesium 1.9 Total Bilirubin 0.3 AST 83 H ALT 73 H Alkaline Phosphatase 203 H Total Protein 5.7 L Albumin 3.4 L TSH Random Cortisol Microbiology Microbiology Results: Microbiology 09/13/23 18:02 Blood Culture - Final Blood - Venous Coag negative Staphylococcus 09/13/23 19:07 Blood Culture - Preliminary Blood - Venous No growth after 24 hours. Assessment and Plan (1) Severe sepsis: Status: Acute (2) Pancytopenia with fever: Status: Acute (3) Transaminitis: Status: Acute Plan 77-year-old female with a history of anxiety and cholecystectomy approximately 2 years ago who presented to the ER after feeling lightheaded while in the shower and falling on her buttocks.? No LOC, no head injury or neck pain. She does report having fevers with chills for the last 5 days with temperatures ranging from 103-104?F and a poor appetite and about 1 week prior removed a tick on her chest, she was persistently hypotensive despite IVF and was thus admitted to the ICU for vasopressors. She has pancytopenia, transaminitis, Treated with Vanco, cefepime, Doxy and Mepron Severe speis possibly due to tick borne infection--continue present Abx (Vanco, cefepime, Doxy and Mepron). Hypotension resolved after pressors. Follow cultures, ID consult. Tick borne serology pending Pancytopenia--likely related to the above Elevated LFts, likely related to above, monitor Anxiety--Psych consult Quality Stroke Does the patient have a stroke diagnosis?: No VTE Prior VTE?: No VTE Risk Level:: Medical - moderate - high VTE Device Contraindication: N/A - Device Ordered VTE Drug Contraindication: N/A - Med Ordered
--- NOTE | 2023-09-15 14:18 | MHC.CM.PN ---
CM met with pt to ask if she will complete HCP, she declined, as she has one at her home in [place] and is returning there in Oct. DC plan is for her to return to where she was living prior, no services.
[2023-09-15 14:50] LABS: Vancomycin Trough 9.8 mcg/mL (10.0-20.0)
--- NOTE | 2023-09-15 15:00 | HE.PHANOTE ---
RE: vanco Trough on 09/15 came back at 9.8; increased dose to 1000mg Q12H with predicted trough of 13.3 mg/L, AUC of 468. Next level to be drawn 09/16/23 @1400
[2023-09-15] MEDS: vancomycin HCL 1,000 MG in 0.9 % Sodium Chloride 250 ML 270 MG IV (15:23)
[2023-09-15 22:24] LABS: Lyme Abs Screen <0.90 index
[2023-09-16 03:49] VITALS: BP 113/57; PULSE 72; RESP 20; TEMP 36.9; O2SAT 93
[2023-09-16] MEDS: vancomycin HCL 1,000 MG in 0.9 % Sodium Chloride 250 ML 270 MG IV (04:49)
[2023-09-16] MEDS: hydrOXYzine HCL 10 MG TABLET PO (06:44)
[2023-09-16] MEDS: Acetaminophen 325 MG TABLET 650 MG PO (06:45)
[2023-09-16 07:39] VITALS: BP 114/59; PULSE 65; RESP 18; TEMP 36.2; O2SAT 95
[2023-09-16 07:39] LABS: Creatinine Clr Calc Pharmacy 72.7; Estimated Glomerular Filt Rate > 60
[2023-09-16] MEDS: cefEPime HCl 2 GM in 0.9 % Sodium Chloride 50 ML IV ×3 (08:25→16:01)
[2023-09-16] MEDS: buPROPion HCl XL 300 MG TAB.ER.24H PO (08:35)
[2023-09-16] MEDS: Cholecalciferol (Vitamin D3) 25 MCG TABLET PO (08:35)
[2023-09-16] MEDS: Cyanocobalamin (Vitamin B-12) 1,000 MCG TABLET 1000 MCG PO (08:35)
[2023-09-16] MEDS: Multivitamin TABLET 1 TAB PO (08:35)
[2023-09-16] MEDS: Atovaquone 750 MG/5 ML ORAL.SUSP PO (08:36)
[2023-09-16] MEDS: Doxycycline Hyclate 100 MG in 0.9 % Sodium Chloride 250 ML 166.67 MG IV ×2 (09:50→21:58)
[2023-09-16 11:51] VITALS: BP 122/57; PULSE 72; RESP 18; TEMP 36.3; O2SAT 95
[2023-09-16 11:54] LABS: A. Phagocytophilum Ab IgG <1:64 (<1:64); A. Phagocytophilum Ab IgM <1:20 (<1:20); E. Chaffeensis Ab IgG <1:64 (<1:64); E. Chaffeensis Ab IgM <1:20 (<1:20)
[2023-09-16 11:54] LABS: A. Phagocytophilum Ab IgG <1:64 (<1:64); A. Phagocytophilum Ab IgM <1:20 (<1:20); E. Chaffeensis Ab IgG <1:64 (<1:64); E. Chaffeensis Ab IgM <1:20 (<1:20)
--- NOTE | 2023-09-16 11:59 | P.PNIM_ITS ---
Subjective Subjective Date of Service: 09/16/23 Interval History: Overall doing, with no fever, or chills and no hypotension, had some issues, with infiltrated ivs Physical Exam 2 Vital Signs: Vital Signs: Last Vital Signs Temp 97.4 F 09/16/23 11:51 Pulse 72 09/16/23 11:51 Resp 18 09/16/23 11:51 BP 122/57 L 09/16/23 11:51 Pulse Ox 95 09/16/23 11:51 O2 Del Method Room Air 09/16/23 11:51 BMI result Body Mass Index 26.3 Objective Data Active Medications Acetaminophen (Acetaminophen 325 Mg Tablet) 650 mg PO Q6H PRN PRN Reason: fever > 102 Last Admin: 09/16/23 06:45 Dose: 650 mg Documented By: JEAN Atovaquone (Atovaquone 750 Mg/5 Ml Oral.Susp) 750 mg PO BID [facility] Stop: 09/20/23 21:01 Last Admin: 09/16/23 08:36 Dose: 750 mg Documented By: PETE Bupropion HCl (Bupropion Hcl Xl 300 Mg Tab.Er.24h) 300 mg PO DAILY [facility] Last Admin: 09/16/23 08:35 Dose: 300 mg Documented By: PETE Cyanocobalamin (Cyanocobalamin (Vitamin B-12) 1,000 Mcg Tablet) 1,000 mcg PO DAILY [facility] Last Admin: 09/16/23 08:35 Dose: 1,000 mcg Documented By: PETE Hydroxyzine HCl (Hydroxyzine Hcl 10 Mg Tablet) 10 mg PO Q6H PRN PRN Reason: anxiety/restlessness Last Admin: 09/16/23 06:44 Dose: 10 mg Documented By: JEAN Cefepime HCl 2 gm/ Sodium (Chloride) 50 mls @ 100 mls/hr IV Q8H [facility] Last Infusion: 09/16/23 09:07 Dose: Infused Documented By: PETE Doxycycline Hyclate 100 mg/ (Sodium Chloride) 250 mls @ 166.67 mls/hr IV Q12H [facility] Stop: 09/23/23 20:59 Last Infusion: 09/16/23 11:43 Dose: Infused Documented By: PETE Vancomycin HCl 1,000 mg/ (Sodium Chloride) 270 mls @ 270 mls/hr IV Q12H [facility] Last Infusion: 09/16/23 06:49 Dose: Infused Documented By: JEAN Multivitamins/Vitamin C (Multivitamin Tablet) 1 tab PO DAILY [facility] Last Admin: 09/16/23 08:35 Dose: 1 tab Documented By: PETE Pharmacy Consult (Consult Rx Vancomycin Dosing) 1 each MISCELLANE DAILY PRN PRN Reason: Consult order Vitamin D (Cholecalciferol (Vitamin D3) 25 Mcg Tablet) 25 mcg PO DAILY [facility] Last Admin: 09/16/23 08:35 Dose: 25 mcg Documented By: PETE Labs 09/15/23 05:10 09/16/23 06:28 Labs: Laboratory Results - last 24 hr 09/13/23 09/14/23 09/14/23 18:02 00:37 14:19 Hold Purple Top Estim Creat Clear Calc Estimated GFR Vancomycin Trough A. phagocytophilum IgG <1:64 <1:64 A. phagocytophilum IgM <1:20 <1:20 A.phagocytophilum Intrp A. phagocytophilum Cmmt See Below See Below Lyme Screen IgG & IgM <0.90 E. chaffeensis IgG Ab <1:64 <1:64 E. chaffeensis IgM Ab <1:20 <1:20 E. chaffeensis Interp E. chaffeensis Comment See Below See Below 09/15/23 09/16/23 14:11 06:28 Hold Purple Top SEE NOTE Estim Creat Clear Calc 72.7 Estimated GFR > 60 Vancomycin Trough 9.8 L A. phagocytophilum IgG A. phagocytophilum IgM A.phagocytophilum Intrp A. phagocytophilum Cmmt Lyme Screen IgG & IgM E. chaffeensis IgG Ab E. chaffeensis IgM Ab E. chaffeensis Interp E. chaffeensis Comment Microbiology Microbiology Results: Microbiology 09/13/23 19:07 Blood Culture - Preliminary Blood - Venous No growth after 48 hours. 09/13/23 18:02 Blood Culture - Final Blood - Venous Coag negative Staphylococcus Assessment and Plan (1) Severe sepsis: Status: Acute (2) Pancytopenia with fever: Status: Acute (3) Transaminitis: Status: Acute Plan 77-year-old female with a history of anxiety and cholecystectomy approximately 2 years ago who presented to the ER after feeling lightheaded while in the shower and falling on her buttocks.? No LOC, no head injury or neck pain. She does report having fevers with chills for the last 5 days with temperatures ranging from 103-104?F and a poor appetite and about 1 week prior removed a tick on her chest, she was persistently hypotensive despite IVF and was thus admitted to the ICU for vasopressors. She has pancytopenia, transaminitis, Treated with Vanco, cefepime, Doxy and Mepron Severe speis possibly due to tick borne infection--continue present Abx (Vanco, cefepime, Doxy and Mepron). Hypotension resolved after pressors. Follow cultures, ID consult. Tick borne serology pending DC Vanco blood culture / coag neg stap. ID consult pending. Pancytopenia--likely related to the above, repeat lab and if not improving hematology consult Elevated LFts, likely related to above, monitor Anxiety--Psych consult dvt: ambulation, due to thrombocytopenia full codde need for inpt: severe sepsis with hypotension, with ongoing work up for tick borne illness and need for expert assessment for right antibioticx Quality Stroke Does the patient have a stroke diagnosis?: No VTE Prior VTE?: No VTE Risk Level:: Medical - moderate - high VTE Device Contraindication: N/A - Device Ordered VTE Drug Contraindication: N/A - Med Ordered
[2023-09-16 12:15] LABS: Anion Gap 11 (12-20)
[2023-09-16 12:22] LABS: Blood Urea Nitrogen 11 mg/dL (9-16); Calcium 8.1 mg/dL (8.4-10.2); Carbon Dioxide 24 mmol/L (22-29); Chloride 110 mmol/L (96-108); Glucose Random 92 mg/dL (60-115); Potassium 3.5 mmol/L (3.3-5.1); Sodium 141 mmol/L (135-145)
[2023-09-16 14:23] LABS: Hematocrit 26.7 % (37.0-47.0); Mean Corpuscular HGB Conc 33.7 g/dl (31.0-35.0); Mean Corpuscular Hemoglobin 26.3 pg (27.0-33.0); Mean Corpuscular Volume 78.1 fL (80.0-98.0); Mean Platelet Volume 12.4 fL (9.4-12.3); Red Blood Count 3.42 X10*6/uL (4.20-5.50); Red Cell Distribution Width 14.1 % (11.0-16.0); White Blood Count 6.1 X10*3/uL (4.8-10.8)
[2023-09-16 14:28] LABS: Platelet Count 90 X10*3/uL (160-400)
[2023-09-16 14:34] LABS: Vancomycin Trough 13.9 mcg/mL (10.0-20.0)
[2023-09-16 15:03] LABS: A. Phagocytphilium DNA,RT-PCR DETECTED (NOT DETECTED); Babesia Microti DNA, RT-PCR NOT DETECTED (NOT DETECTED); Borrelia Miyamotoi,DNA RT-PCR NOT DETECTED (NOT DETECTED); E.Chaffeensis DNA RT-PCR NOT DETECTED (NOT DETECTED); Lyme(Borrelia ssp)DNA RT-PCR NOT DETECTED (NOT DETECTED)
[2023-09-16 15:52] VITALS: BP 128/68; PULSE 76; RESP 18; TEMP 36.6; O2SAT 96
--- NOTE | 2023-09-16 16:20 | W.PM.IDCN ---
History of Present Illness Data of Consult Service Date: 09/16/23 [facility] [place] [facility] Primary Care Provider: Unknown Physician HPI Reason for consult: severe sepsis She presents with weakness and fever and chills for five days. She has leukopenia Dr Julien of pathology notes morulae c/w anaplasmosis and no babesia were seen on smear. He had tick engorged about a week ago. Review of Systems Review of Systems: Yes all other systems are reviewed and are negative PMFSH Past Medical History Functional capacity: independent ambulation Family History Family history: reviewed and not pertinent Social History Social History Household Members: None Housing: Apartment Do you presently have visiting nurse or other home services: No Patient Tobacco Use Status: Never used Tobacco Smoked in Last 30 Days: No Use of substances other than those prescribed or required for medical reasons: No Currently Displaying Signs/Symptoms of Drug Intoxication Withdrawal: No Have you been hit, kicked, punched, or otherwise hurt by someone within the past year? If so, by whom?: No Do you feel safe in your current relationship?: No Current Relationship Is there a partner from a previous relationship who is making you feel unsafe now?: No Are you made to feel afraid or neglected: No Advance Directives: No Advance Directives Information Provided: No Advance Directives on File: No Do you have thoughts of harming others: None Do you have a plan to hurt others: No Plan Recently lost weight without trying: Yes How much weight loss: 24-33 pounds Eating poorly because of decreased appetite: No Nutrition screen score: 5 Nutrition Risks: No Nutritional Risk Patient : No : No Poor oral hygiene: No service: No Travel History Ebola Risk: Travel/Contact With Anyone From Affected Area/s: No Meds Allergies Allergy/AdvReac Type Severity Reaction Status Date / Time Sulfa (Sulfonamide Allergy hives and Verified 09/13/23 16:23 Antibiotics) rash Active Medications: Current Medications Acetaminophen (Acetaminophen 325 Mg Tablet) 650 mg PO Q6H PRN PRN Reason: fever > 102 Last Admin: 09/16/23 06:45 Dose: 650 mg Atovaquone (Atovaquone 750 Mg/5 Ml Oral.Susp) 750 mg PO BID REGINA Stop: 09/20/23 21:01 Last Admin: 09/16/23 08:36 Dose: 750 mg Bupropion HCl (Bupropion Hcl Xl 300 Mg Tab.Er.24h) 300 mg PO DAILY [facility] Last Admin: 09/16/23 08:35 Dose: 300 mg Cyanocobalamin (Cyanocobalamin (Vitamin B-12) 1,000 Mcg Tablet) 1,000 mcg PO DAILY [facility] Last Admin: 09/16/23 08:35 Dose: 1,000 mcg Hydroxyzine HCl (Hydroxyzine Hcl 10 Mg Tablet) 10 mg PO Q6H PRN PRN Reason: anxiety/restlessness Last Admin: 09/16/23 06:44 Dose: 10 mg Cefepime HCl 2 gm/ Sodium (Chloride) 50 mls @ 100 mls/hr IV Q8H [facility] Last Admin: 09/16/23 16:01 Dose: 100 mls/hr Vancomycin HCl 1,000 mg/ (Sodium Chloride) 270 mls @ 270 mls/hr IV Q12H [facility] Last Infusion: 09/16/23 06:49 Dose: Infused Doxycycline Hyclate 100 mg/ (Sodium Chloride) 250 mls @ 166.67 mls/hr IV Q12H [facility] Stop: 09/23/23 23:29 Multivitamins/Vitamin C (Multivitamin Tablet) 1 tab PO DAILY [facility] Last Admin: 09/16/23 08:35 Dose: 1 tab Pharmacy Consult (Consult Rx Vancomycin Dosing) 1 each MISCELLANE DAILY PRN PRN Reason: Consult order Vitamin D (Cholecalciferol (Vitamin D3) 25 Mcg Tablet) 25 mcg PO DAILY [facility] Last Admin: 09/16/23 08:35 Dose: 25 mcg Home Medications Medication Instructions Recorded Confirmed Last Taken Type biotin 1 mg tablet 1 mg PO DAILY 09/14/23 09/14/23 09/09/23 History bupropion HCl 300 mg 24 hr tablet, 300 mg PO DAILY 09/14/23 09/14/23 09/09/23 History extended release cholecalciferol (vitamin D3) 25 25 mcg PO DAILY 09/14/23 09/14/23 09/09/23 History mcg (1,000 unit) tablet cyanocobalamin (vitamin B-12) 1,000 mcg PO DAILY 09/14/23 09/14/23 09/09/23 History 1,000 mcg tablet multivitamin 1 tab PO DAILY 09/14/23 09/14/23 09/09/23 History Physical Exam Vital Signs: Vital Signs: Last Vital Signs Temp 97.8 F 09/16/23 15:52 Pulse 76 09/16/23 15:52 Resp 18 09/16/23 15:52 BP 128/68 09/16/23 15:52 Pulse Ox 96 09/16/23 15:52 O2 Del Method Room Air 09/16/23 15:52 BMI result Body Mass Index 26.3 Const: General: cooperative HEENT: Head: Yes normal to inspection Face and sinus: Yes normal facial exam Mouth: Normal oral and palatal mucosa present Teeth and gingiva: dentition normal Eyes: General: appearance normal, both eyes and all related structures Pupils: Equal, round and reactive pupils present Resp: Effort & Inspection: normal respiratory effort Cardio: Rate: regular rate Rhythm: regular rhythm GI: Palpation (GI): Soft to palpation and nontender : General: Yes no CVA tenderness Back/Spine/Pelvis: Back: no CVA tenderness Skin: General skin exam: no rashes or lesions noted Neuro: General: moves all extremities Cranial nerves: Yes Equal, round and reactive pupils present Extrem: General: Yes normal to inspection Psych: Appearance: grossly normal Results Labs 09/16/23 14:05 09/16/23 06:28 Labs: Short CBC 09/16/23 Range/Units 14:05 WBC 6.1 (4.8-10.8) X10*3/uL Hgb 9.0 L (12.0-16.0) g/dl Hct 26.7 L (37.0-47.0) % Plt Count 90 L D (160-400) X10*3/uL BMP 09/16/23 06:28 Sodium 141 Potassium 3.5 Chloride 110 H Carbon Dioxide 24 BUN 11 Creatinine 0.64 Calcium 8.1 L D Microbiology Microbiology Results: Microbiology 09/13/23 19:07 Blood - Venous Blood Culture - Preliminary No growth after 48 hours. 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 Plan Would give Doxycycline 10 days total as CBC improving. Stop Cefepime and Vancomycin as no other causes seen and dont treat neutropenic fever with these unless Oncology patient and neutropenic due to chemotherapy. Stop Mepron as is given with Zmax not alone for babesiosis.
[2023-09-16 19:21] VITALS: BP 102/66; PULSE 80; RESP 18; TEMP 36.4; O2SAT 94
[2023-09-16 23:50] VITALS: BP 109/56; PULSE 58; RESP 18; TEMP 37; O2SAT 96
[2023-09-17] MEDS: Acetaminophen 325 MG TABLET 650 MG PO ×2 (03:42→09:49)
[2023-09-17 04:00] VITALS: BP 118/56; PULSE 62; RESP 20; TEMP 36.9; O2SAT 94
[2023-09-17 06:00] VITALS: BMI 26.0
[2023-09-17 07:42] LABS: Hematocrit 23.5 % (37.0-47.0); Hemoglobin 8.2 g/dl (12.0-16.0); Mean Corpuscular HGB Conc 34.9 g/dl (31.0-35.0); Mean Corpuscular Hemoglobin 26.9 pg (27.0-33.0); PLT CLUMP 1; Red Blood Count 3.05 X10*6/uL (4.20-5.50); Red Cell Distribution Width 13.9 % (11.0-16.0)
[2023-09-17 07:47] LABS: White Blood Count 6.7 X10*3/uL (4.8-10.8)
[2023-09-17 07:57] VITALS: BP 118/57; PULSE 61; RESP 18; TEMP 36.2; O2SAT 96
[2023-09-17 08:28] LABS: Platelet Count 131 X10*3/uL (160-400)
[2023-09-17] MEDS: Multivitamin TABLET 1 TAB PO (09:49)
[2023-09-17] MEDS: Doxycycline Monohydrate 100 MG CAPSULE PO (09:50)
[2023-09-17] MEDS: Cyanocobalamin (Vitamin B-12) 1,000 MCG TABLET 1000 MCG PO (09:50)
[2023-09-17] MEDS: Cholecalciferol (Vitamin D3) 25 MCG TABLET PO (09:50)
[2023-09-17] MEDS: buPROPion HCl XL 300 MG TAB.ER.24H PO (09:50)
--- NOTE | 2023-09-17 11:20 | P.DS_ITS ---
DS: Providers Provider Date of Service: 09/17/23 Date of admission: 09/14/23 01:34 Primary care physician: Unknown Physician Consults: 09/15/23 13:46 Consult to Infectious Diseases Routine Consulting Provider: [facility] [place] Infectious Disease Reason for consultation: Tick borne illness with fever Has provider been notified: No DS: Diagnosis Discharge Diagnosis (1) Severe sepsis: Status: Acute (2) Pancytopenia with fever: Status: Acute DS: Summary Hospital Course Hospital Course: [facility] [place] Complaint: Febrile illness Ms. Holt Is a 77-year-old female with a history of anxiety and cholecystectomy approximately 2 years ago who presented to the ER after feeling lightheaded while in the shower and falling on her buttocks.? No LOC, no head injury or neck pain. She does report having fevers with chills for the last 5 days with temperatures ranging from 103-104?F and a poor appetite.? About a week ago she did have a tick bite on the right chest.? She removed the tick within a few minutes.? It was not engorged but there was erythema at the site of the bite. On arrival to the emergency room, the patient's blood pressure was 98/56, heart rate 97, temp 100.7. Laboratory data significant for WBC 1.4, Hgb 9.9, Hct 29.4, PLT 29,? ESR 38, sodium 131, BUN 21, AST 98, ALT 68,? alk-phos 178, CRP 25.74, total protein 5.9, albumin 3.3.? Urinalysis showed 2+ protein, 2+ blood. ? Respiratory panel negative. Imaging: CXR: No significant abnormality is noted involving the heart, lungs, mediastinum, bony thorax or soft tissues. CT/CT abdomen pelvis w IV con: No acute intra-abdominal process. ED course: ? The patient became hypotensive? while in the ED.? She received IV fluid more than 30 cc/kg and broad-spectrum antibiotics were given including dox ycycline to cover atypical infections.? Her blood pressure initially responded to the fluids but she again became hypotensive. Hospital course: Essentially, she presented with febrile illness, weakness, and dizziness in the setting of tick bite and was noted to be hypotensive and, therefore, was admitted to the ICU, where she required IVF and vasopressor. She was initiated on Mepron, vancomycin, Cefepim, and Doxycycline. Labs show pancytopenia and elevated LFTs. A tick-borne panel was sent. She recovered quickly, and her fever resolved. Platelet dropped to a low of 126 but is now up to 131; Hgb is in the range of 8 to 9 and stable and is expected to improve. LFTs were mildly elevated and are also expected to resolve. Blood cultures have been negative, except for a 1/2 coag-negative staph deemed contaminated. The patient was evaluated by Infectious disease expert with a final recommendation to treat for 10 with Doxycycline. She's overall feeling better and will be discharged home. Final diagnoses: 1 Septic shock 2. Anaplasmosis 3. Pancytopenia 4. Elevated LFts Time Attestation Discharge coordination time: Greater than 30 minutes Quality: Safe Use of Opioids Does Pt have an Active Cancer Diagnosis on the Problem List?: No Quality: Stroke Does the patient have a stroke diagnosis?: No Physical Exam Vital Signs: Vital Signs: Last Vital Signs Temp 97.1 F 09/17/23 07:57 Pulse 61 09/17/23 07:57 Resp 18 09/17/23 07:57 BP 118/57 L 09/17/23 07:57 Pulse Ox 96 09/17/23 07:57 O2 Del Method Room Air 09/17/23 07:57 BMI result Body Mass Index 26.0 DS: Data Data Completed and Pending Labs on day of discharge: Laboratory Results - last 24 hr 09/13/23 09/14/23 09/14/23 18:02 00:37 14:19 WBC RBC Hgb Hct MCV MCH MCHC RDW Plt Count MPV Absolute Nucleated RBC Nucleated RBC % (auto) Sodium Potassium Chloride Carbon Dioxide Anion Gap BUN Creatinine Estim Creat Clear Calc Estimated GFR Random Glucose Calcium Vancomycin Trough A. phagocytophilum IgG <1:64 <1:64 A. phagocytophilum IgM <1:20 <1:20 A.phagocytophil DNA PCR DETECTED A A.phagocytophilum Intrp A. phagocytophilum Cmmt See Below See Below Babesia microti DNA PCR NOT DETECTED Borrelia sp DNA (PCR) NOT DETECTED Lyme Progressive Test TNP Borrelia miyamotoi (PCR) NOT DETECTED E. chaffeensis IgG Ab <1:64 <1:64 E. chaffeensis IgM Ab <1:20 <1:20 E.chaffeensis DNA (PCR) NOT DETECTED E. chaffeensis Interp E. chaffeensis Comment See Below See Below Tick-borne Disease PCR SEE NOTE 09/16/23 09/16/23 09/17/23 06:28 14:05 06:59 WBC 6.1 6.7 RBC 3.42 L 3.05 L Hgb 9.0 L 8.2 L Hct 26.7 L 23.5 L MCV 78.1 L 77.0 L MCH 26.3 L 26.9 L MCHC 33.7 34.9 RDW 14.1 13.9 Plt Count 90 L D 131 L D MPV 12.4 H Not Reportable Absolute Nucleated RBC 0.000 0.000 Nucleated RBC % (auto) 0.0 0.0 Sodium 141 Potassium 3.5 Chloride 110 H Carbon Dioxide 24 Anion Gap 11 L BUN 11 Creatinine 0.64 Estim Creat Clear Calc 72.7 Estimated GFR > 60 Random Glucose 92 Calcium 8.1 L D Vancomycin Trough 13.9 A. phagocytophilum IgG A. phagocytophilum IgM A.phagocytophil DNA PCR A.phagocytophilum Intrp A. phagocytophilum Cmmt Babesia microti DNA PCR Borrelia sp DNA (PCR) Lyme Progressive Test Borrelia miyamotoi (PCR) E. chaffeensis IgG Ab E. chaffeensis IgM Ab E.chaffeensis DNA (PCR) E. chaffeensis Interp E. chaffeensis Comment Tick-borne Disease PCR Preliminary micro results at discharge 09/13/23 19:07 Blood Culture - Preliminary Blood - Venous No growth after 48 hours. Discharge Plan Discharge Anticipated Discharge Date/Time: 09/17/23 11:12 Patient Disposition: Home, Self-Care Discharge Diagnosis: Anaplasmosis Referrals: Physician,Unknown J [Primary Care Provider] - 1 Week Discharge Medications: New doxycycline monohydrate 100 mg Capsule 100 mg PO BID Qty: 15 0RF Continued bupropion HCl 300 mg tablet extended release 24 hr 300 mg PO DAILY multivitamin Tablet 1 tab PO DAILY cyanocobalamin (vitamin B-12) 1,000 mcg Tablet 1,000 mcg PO DAILY biotin 1 mg Tablet 1 mg PO DAILY cholecalciferol (vitamin D3) 25 mcg (1,000 unit) Tablet 25 mcg PO DAILY Discharge Orders: Discharge Order (Routine); Ordered 09/17/23 Ordered By: Cody Samuel Diet: Advance to usual diet Activity on Discharge: As tolerated Stand Alone Forms: Patient Portal Discharge page Other Ambulatory Orders: Complete Blood Count no Diff (Routine) Timeframe: 1 Week Facility: [facility] - Location: Laboratory Ordered By: Cody Samuel Care Plan Goals: full recovery from anaplasmosis Health Concerns: anaplasmosis pancytopenia Plan of Treatment: Take Doxycyline as recommended and follow up with your Doctor in a week, you are expected to make full recovery, may participate activities as you are able Get labs work done in a week Assessment: as able
== END 2023-09-17 12:05 | disposition home or self-care (01) | DRG 871 ==
LOC: HO.ED 09-14 00:46 → HO.EDOVER 09-14 01:39 → HO.ICU 09-14 01:40 → HO.IMC 09-15 07:37
PROVIDERS: Internal Medicine Critical Care Medicine; Registered Nurse Community Health; Admitting Provider Nurse Practitioner Family; Emergency Provider Internal Medicine; Visit Provider Internal Medicine
DX: A41.9 Sepsis, unspecified organism (principal); R65.21 Severe sepsis with septic shock; D61.818 Other pancytopenia; A79.82 Anaplasmosis [A. phagocytophilum]; F41.9 Anxiety disorder, unspecified; Z20.822 Contact with and (suspected) exposure to COVID-19; Z79.899 Other long term (current) drug therapy
CPT/HCPCS: 0241U; 36415; 71045; 74177; 80048; 80053; 80202; 81001; 82533; 82565; 82728; 83605; 83615; 83690; 83735; 84100; 84443; 85025; 85027; 85652; 86140; 86617; 86618; 86666; 86850; 86900; 86901; 87040; 87147; 87205; 87468; 87469; 87478; 87484; 87798; 93005; 93306; 99285; J0613; J0692; J3370; P9047; Q9957; Q9967

== ENCOUNTER 2023-09-14 01:34 | Outpatient (BNV) | payer MEDICARE, OTHER, SELFPAY | END 2023-09-14 07:00 | PROVIDERS: Admitting Provider Nurse Practitioner Family; Emergency Provider Internal Medicine; Visit Provider Internal Medicine Cardiovascular Disease | DX: I31.39 Other pericardial effusion (noninflammatory) (principal) | CPT/HCPCS: 93306 ==

== ENCOUNTER → 2023-09-14 01:34 | Outpatient (BNV) | payer MEDICARE, OTHER, SELFPAY | PROVIDERS: Admitting Provider Nurse Practitioner Family; Emergency Provider Internal Medicine; Visit Provider Nurse Practitioner Family | DX: A41.9 Sepsis, unspecified organism (principal); R65.20 Severe sepsis without septic shock; D61.818 Other pancytopenia; R50.81 Fever presenting with conditions classified elsewhere; R74.01 Elevation of levels of liver transaminase levels | CPT/HCPCS: 99291 ==

== ENCOUNTER → 2023-09-14 01:34 | Outpatient (BNV) | payer MEDICARE, OTHER, SELFPAY | PROVIDERS: Admitting Provider Nurse Practitioner Family; Emergency Provider Internal Medicine; Visit Provider Internal Medicine | DX: A41.9 Sepsis, unspecified organism (principal); R65.20 Severe sepsis without septic shock; D61.818 Other pancytopenia; R50.81 Fever presenting with conditions classified elsewhere | CPT/HCPCS: 99222 ==

== ENCOUNTER → 2023-09-14 01:34 | Outpatient (BNV) | payer MEDICARE, OTHER, SELFPAY | PROVIDERS: Admitting Provider Nurse Practitioner Family; Emergency Provider Internal Medicine; Visit Provider Internal Medicine | DX: A41.9 Sepsis, unspecified organism (principal); R65.20 Severe sepsis without septic shock; D61.818 Other pancytopenia; R50.81 Fever presenting with conditions classified elsewhere | CPT/HCPCS: 99232; 99239 ==